=== PATIENT | female | born 1960 | race Hispanic/Latino ===

== ENCOUNTER 2023-03-03 09:50 | Outpatient (CLI) | payer MEDICARE | END 2023-03-03 09:51 | disposition home or self-care (01) | LOC: CSHRAD 09:50 | PROVIDERS: ATTEND Family Medicine | DX: S99.921A Unspecified injury of right foot, initial encounter (principal) ==

== ENCOUNTER 2023-08-04 11:42 | Outpatient (CLI) | payer MEDICARE | END 2023-08-04 11:43 | disposition home or self-care (01) | LOC: CSHRAD 11:42 | PROVIDERS: ATTEND Student in an Organized Health Care Education/Training Program | DX: M79.671 Pain in right foot (principal) ==

== ENCOUNTER 2025-01-03 17:56 | Emergency (ER) | payer MEDICARE, OTHER ==
[2025-01-03 18:37] LABS: #Basophils 0.03 10x3/uL (0.0-0.2); #Eosinophils 0.04 10x3/uL (0.0-0.5); #Monocytes 0.96 10x3/uL (0.0-1.1); #Neutrophils 13.07 10x3/uL (1.5-8.4); %Basophils 0.2 % (0.0-2.0); %Eosinophils 0.2 % (0.0-6.0); %Lymphocytes 14.1 % (18.0-47.0); %Monocytes 5.8 % (0.0-10.0); %Neutrophils 79.2 % (40.0-75.0); Hematocrit 38.7 % (34.9-44.5); Hemoglobin 13.5 g/dL (12.0-15.5); Mean Corpuscular Hemoglobin 30.5 pg (27.0-33.0); Mean Corpuscular Volume 87.6 fL (81.6-98.3); Platelet Count 298 10x3/uL (150-450); Red Blood Cell (RBC) Count 4.42 10x6/uL (3.90-5.03); White Blood Cell (WBC) Count 16.51 10x3/uL (3.5-10.5)
[2025-01-03 18:55] LABS: ALT (SGPT) 20 U/L (Less than 34); AST (SGOT) 23 U/L (11-34); Albumin 4.3 g/dL (3.1-4.5); Alkaline Phosphatase 103 U/L (40-110); Anion Gap 14 mmol/L (10-20); BUN (Urea Nitrogen) 10 mg/dL (9.8-20.1); Bilirubin, Total 0.6 mg/dL (0.3-1.2); Calc. Creatinine Clearance 0 mL/min (70-130); Calcium 8.8 mg/dL (7.8-10.44); Carbon Dioxide 24 mmol/L (23-31); Chloride 103 mmol/L (98-107); Globulin 3.7 g/dL (2.4-3.5); Glucose 311 mg/dL (80-115); Lipase 20 U/L (8-78); Potassium 3.7 mmol/L (3.5-5.1); Sodium 137 mmol/L (136-145)
[2025-01-03 19:50] LABS: Glucose, Urine (Dipstick) >=1000 mg/dL (Negative); Leukocyte Negative (Negative); Protein, Urine (Dipstick) Negative (Neg-Trace); Specific Gravity, Urine 1.010 (1.005-1.030)
[2025-01-03 20:00] LABS: CAUTI Indications for Culture Pelvic or flank pain; RBC/HPF 0-3 HPF (0-3); WBC/HPF 0-3 HPF (0-3)
[2025-01-03 20:01] LABS: Bacteria/HPF Rare-Few HPF (None Seen)
[2025-01-03 20:02] LABS: Urine Culture Reflex No No
== END 2025-01-03 21:17 | disposition home or self-care (01) ==
LOC: CSHERS 17:56
DX: K57.32 Diverticulitis of large intestine without perforation or abscess without bleeding (principal); E11.9 Type 2 diabetes mellitus without complications; I10 Essential (primary) hypertension
CPT/HCPCS: 74176; 80053; 81001; 83690; 85025

== ENCOUNTER 2025-02-09 10:41 | Emergency (ER) | payer OTHER ==
[2025-02-09] MEDS ORDERED: Ondansetron PF 4 MG/2 ML Vial ONE (11:02)
[2025-02-09] MEDS ORDERED: Ketorolac Tromethamine 30 MG (1 mL) VIAL ONE (11:02)
[2025-02-09] MEDS ORDERED: Famotidine/PF 20 mg/2ml Vial ONE (12:10)
[2025-02-09] MEDS ORDERED: Mag-Al 1200 mg/1200 mg/30 ML UDCUP ONE (12:10)
[2025-02-09] MEDS ORDERED: Lidocaine Viscous Sol 2% 15 ml UD Cup ONE (12:10)
== END 2025-02-09 13:20 | disposition home or self-care (01) ==
LOC: CSHERS 10:41
DX: M54.42 Lumbago with sciatica, left side (principal); E11.9 Type 2 diabetes mellitus without complications; I10 Essential (primary) hypertension; Z79.899 Other long term (current) drug therapy; Z79.84 Long term (current) use of oral hypoglycemic drugs
CPT/HCPCS: J1885; J2270; J2405; 96374; 96375